=== PATIENT | female | born 1950 | race Caucasian/White ===

== ENCOUNTER 2018-10-15 09:54 | Emergency (ER) | payer MEDICARE, OTHER | END 2018-10-15 11:20 | disposition home or self-care (01) | LOC: MADERS 09:54 | DX: J06.9 Acute upper respiratory infection, unspecified (principal); I10 Essential (primary) hypertension; E78.00 Pure hypercholesterolemia, unspecified; Z79.899 Other long term (current) drug therapy | CPT/HCPCS: 99283 ==

== ENCOUNTER 2022-04-18 18:46 | Emergency (ER) | payer MEDICARE ==
[2022-04-18] MEDS ORDERED: Benzonatate 100 MG CAP ONE (20:01)
[2022-04-18] MEDS ORDERED: Lidocaine 1% PF 5 ML VIAL ONE (20:01)
[2022-04-18] MEDS ORDERED: cefTRIAXone\\ROCEPHIN 1 GM VIAL ONE (20:01)
== END 2022-04-18 20:34 | disposition home or self-care (01) ==
LOC: MADERS 18:46
DX: J18.9 Pneumonia, unspecified organism (principal); E03.9 Hypothyroidism, unspecified; I10 Essential (primary) hypertension; E78.00 Pure hypercholesterolemia, unspecified; Z79.899 Other long term (current) drug therapy
CPT/HCPCS: 71046; 96372; J0696; J1040

== ENCOUNTER 2023-09-15 09:10 | Emergency (ER) | payer MEDICARE ==
[2023-09-15 11:01] LABS: #Basophils 0.1 thou/uL (0.0-0.2); #Eosinphils 0.2 thou/uL (0.0-0.7); #Lymphocytes 1.3 thou/uL (1.20-3.40); #Monocytes 0.4 thou/uL (0.11-0.59); #Neutrophils 2.6 thou/uL (1.40-6.50); %Basophils 2.2 % (0.0-1.0); %Lymphocytes 29.3 % (21.0-51.0); %Neutrophils 56.6 % (42.0-75.0); Anisocytosis SLIGHT = 6-15 cells (100X) (0-5/hpf); Hematocrit 38.6 % (36.0-47.0); Hemoglobin 11.9 g/dL (12.0-16.0); Hypochromia SLIGHT = 6-15 cells (100X) (0-5/hpf); MDiff Complete? YES; Mean Corpuscular HGB CONC 30.8 g/dL (32.0-36.0); Mean Corpuscular Hemoglobin 21.7 pg (27.0-31.0); Mean Corpuscular Volume 70.4 fl (78.0-98.0); Microcytosis SLIGHT = 6-15 cells (100X) (0-5/hpf); Ovalocytes SLIGHT = 2-5 cells (100X) (0-1/hpf); Platelet Adequacy Comment Appears Adequate; Platelet Count 214 10x3/uL (130-400); Poikilocytosis SLIGHT = 6-15 cells (100X) (0-5/hpf); RBC Distribution Width 13.1 % (11.5-14.5); Red Blood Cell (RBC) Count 5.49 mill/uL (4.20-5.40); White Blood Cell (WBC) Count 4.6 10x3/uL (4.8-10.8)
[2023-09-15 11:02] LABS: Anion Gap 15 mmol/L (10-20); BUN (Urea Nitrogen) 10 mg/dL (9.8-20.1); Calc. Creatinine Clearance 0 mL/min (70-130); Calcium 9.2 mg/dL (7.8-10.44); Carbon Dioxide 23 mmol/L (23-31); Chloride 105 mmol/L (98-107); Estimated GFR 91; Glucose 96 mg/dL (83-110); Potassium 4.3 mmol/L (3.5-5.1); Sodium 139 mmol/L (136-145)
[2023-09-15] MEDS ORDERED: Iopamidol 370 76% 100 ML VIAL ONE (14:37)
== END 2023-09-15 12:28 | disposition home or self-care (01) ==
LOC: MADERS 09:10
DX: J20.9 Acute bronchitis, unspecified (principal); I10 Essential (primary) hypertension; E78.00 Pure hypercholesterolemia, unspecified; E03.9 Hypothyroidism, unspecified; Z79.899 Other long term (current) drug therapy
CPT/HCPCS: 71046; 71275; 80048; 85025; 85379; Q9967

== ENCOUNTER 2023-12-29 20:37 | Emergency (ER) | payer MEDICARE ==
[2023-12-29] MEDS ORDERED: Lidocaine 1% PF 5 ML VIAL ONE (21:05)
[2023-12-29] MEDS ORDERED: Bacitracin 1 PK ONE (22:13)
[2023-12-29] MEDS ORDERED: Acetaminophen 500 MG TAB ONE (22:13)
== END 2023-12-29 22:35 | disposition home or self-care (01) ==
LOC: MADERS 20:37
DX: S61.211A Laceration without foreign body of left index finger without damage to nail, initial encounter (principal); I10 Essential (primary) hypertension; E78.00 Pure hypercholesterolemia, unspecified; E03.9 Hypothyroidism, unspecified; Z79.899 Other long term (current) drug therapy; X58.XXXA Exposure to other specified factors, initial encounter
CPT/HCPCS: 12001; 99283